=== PATIENT | female | born 1945 | race Caucasian/White ===

== ENCOUNTER 2017-01-06 05:00 | Observation (INO) ==
--- NOTE | 2017-01-06 05:07 | Emergency Department Note ---
Disposition Clinical Impression: Chest pain Qualifiers: Chest pain type: unspecified Qualified Code(s): R07.9 - Chest pain, unspecified Disposition: Admitted As Inpatient Condition: Undetermined Referrals: Unassigned,Provider [Non-Partnered Physician] - Forms: ED Satisfaction Letter Time of Disposition: 06:12 Chest Pain HPI - General Chief Complaint: ED Chest Pain Stated Complaint: Chest Pain Time Seen by Provider: 01/06/17 05:03 Source: patient Mode of arrival: EMS Limitations: no limitations Vital Signs Reviewed: Yes Nursing Notes Reviewed: Yes - History of Present Illness HPI Narrative: 71-year-old female with history of hypertension, diabetes, extensive family history of siblings who are younger and older then the patient that have had MIs and cardiac stents arrives to [facility] emergency department complaining of chest discomfort and nausea that woke her up from sleep at 2 AM. The patient states that roughly 30 minutes ago she decided to call EMS. The patient was given 4 baby aspirin per EMS. The patient states that she is not having chest pain at this time and that it is more of a discomfort. The patient states she has never had an AZ, no previous history of stress test or cardiac catheter. The patient denies any unilateral leg swelling , recent surgeries, recent immobilizations. Pt complaint: chest pain Onset (ago): hour(s) (3) Time: 02:00 Onset: during rest Pain Location: left chest Severity: mild Severity scale (1-10): 3 Quality: tightness Pain Radiation: none Improves with: nothing Worsens with: nothing Associated symptoms: Reports: nausea Treatments prior to arrival chest pain: aspirin - Related Data On Oral Contraceptives: No Allergies Allergy/AdvReac Type Severity Reaction Status Date / Time Penicillins Allergy Unknown Nausea Verified 01/06/17 05:50 sulfamethoxazole Allergy Unknown unknown Verified 01/06/17 05:50 [From Septra] trimethoprim [From Septra] Allergy Unknown unknown Verified 01/06/17 05:50 Sulfa (Sulfonamide AdvReac Severe Unconscious Verified 01/06/17 05:50 Antibiotics) metformin [From Glucophage] AdvReac Unknown Diarrhea Verified 01/06/17 05:50 All systems ED: reviewed and negative except as stated. Constitutional: Denies: fever, chills, weakness, weight change Eyes: Denies: eye pain, eye discharge, vision change Cardiovascular: Reports: chest pain. Denies: palpitations, dyspnea on exertion , edema, syncope Respiratory: Denies: cough, dyspnea, wheezes, hemoptysis, stridor Gastrointestinal: Reports: nausea. 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 Absent: tenderness, distention, guarding, rebound, rigidity - Extremities Exam Extremities exam: Present: normal inspection, full ROM. Absent: tenderness, pedal edema - Back Exam Back exam: Present: normal inspection, full ROM. Absent: tenderness - Neurological Exam Neurological exam: Present: alert, oriented X3 Course Vital Signs Temperature 98.0 F 01/06/17 05:01 Pulse Rate 104 01/06/17 05:01 Respiratory Rate 16 01/06/17 05:01 Blood Pressure 178/99 01/06/17 05:01 O2 Sat by Pulse Oximetry 95 01/06/17 05:01 Temperature 98.0 F 01/06/17 05:01 Pulse Rate 99 01/06/17 06:03 Respiratory Rate 16 01/06/17 05:01 Blood Pressure 113/59 01/06/17 06:03 O2 Sat by Pulse Oximetry 93 01/06/17 06:03 Oxygen Delivery Oxygen Delivery Room Air Chest Pain - MDM Narrative Medical decision making narrative: Patient resting comfortably. She is chest pain is almost gone. The patient's blood pressures improved. EKG demonstrates no acute findings suggestive of AZ. The patient's d-dimer is appropriate for age and does not warrant any further imaging. The patient's labwork demonstrates no acute findings. We will admit the patient to the hospitalist for further workup given the patient's medical history and no previous evaluation including stress test or cardiac catheter. Patient agrees to this plan. We will admit to the hospitalist. Accepted by Dr. Espinosa. - Lab Data Lab results reviewed: Yes I reviewed the patient's lab results. Result diagrams: 01/06/17 05:05 01/06/17 05:05 Lab Results 01/06/17 01/06/17 01/06/17 Range/Units 05:05 05:05 05:05 WBC 11.9 H (4.3-11.1) K/mcL RBC 4.96 (3.82-4.97) M/mcL Hgb 15.1 (11.5-15.4) g/dL Hct 44.8 (35.3-44.9) % MCV 90.3 (83.0-100.0) fL MCH 30.4 (28.0-33.3) pg MCHC 33.7 (31.6-35.5) g/dL RDW 12.9 (11.5-14.5) % Plt Count 243 (140-400) K/mcL MPV 9.7 (9.4-12.4) fL Immature Gran % 0.3 (0-4) % Seg Neutrophils % 71.5 % Lymphocytes % 20.3 % Monocytes % 5.7 % Eosinophils % 1.7 % Basophils % 0.5 % Neutrophils # 8.5 (1.6-8.9) K/mcL Lymphocytes # 2.4 (0.6-4.6) K/mcL Monocytes # 0.7 (0.0-1.3) K/mcL Eosinophils # 0.2 (0.0-0.6) K/mcL Basophils # 0.1 (0.0-0.2) K/mcL D-Dimer (0-500) ng/mLFEU Sodium 139 (136-145) mEq/L Potassium 4.0 (3.5-4.5) mEq/L Chloride 99 (98-109) mEq/L Carbon Dioxide 27 (19-29) mEq/L BUN 13 (7-20) mg/dL Creatinine 0.86 (0.57-1.11) mg/dL Est GFR ( Amer) > 60 (> 60) Est GFR (Non-Af Amer) > 60 (> 60) BUN/Creatinine Ratio 15 (6-26) Glucose 196 H (70-99) mg/dL Calculated Osmolality 294 (280-300) Calcium 10.0 (8.6-10.8) mg/dL Troponin I 0.01 (0-0.03) ng/mL 01/06/17 Range/Units 05:05 WBC (4.3-11.1) K/mcL RBC (3.82-4.97) M/mcL Hgb (11.5-15.4) g/dL Hct (35.3-44.9) % MCV (83.0-100.0) fL MCH (28.0-33.3) pg MCHC (31.6-35.5) g/dL RDW (11.5-14.5) % Plt Count (140-400) K/mcL MPV (9.4-12.4) fL Immature Gran % (0-4) % Seg Neutrophils % % Lymphocytes % % Monocytes % % Eosinophils % % Basophils % % Neutrophils # (1.6-8.9) K/mcL Lymphocytes # (0.6-4.6) K/mcL Monocytes # (0.0-1.3) K/mcL Eosinophils # (0.0-0.6) K/mcL Basophils # (0.0-0.2) K/mcL D-Dimer 681 H (0-500) ng/mLFEU Sodium (136-145) mEq/L Potassium (3.5-4.5) mEq/L Chloride (98-109) mEq/L Carbon Dioxide (19-29) mEq/L BUN (7-20) mg/dL Creatinine (0.57-1.11) mg/dL Est GFR ( Amer) (> 60) Est GFR (Non-Af Amer) (> 60) BUN/Creatinine Ratio (6-26) Glucose (70-99) mg/dL Calculated Osmolality (280-300) Calcium (8.6-10.8) mg/dL Troponin I (0-0.03) ng/mL - Radiology Data Radiology results reviewed: Yes I reviewed the patient's radiology results. - EKG Data EKG attestation: Yes I reviewed and interpreted this EKG. EKG results narrative: Heart rate 10 9 bpm. MN interval 169 ms. QTc 387 ms. Normal axis. Sinus tachycardia. No ST elevation but mild ST depression noted in V4, V5, V6. No reciprocal changes noted. No other acute changes noted. EKGs changes noted from 04/26/2011 EKG. Heart Score - Score History: Moderately Suspicious EKG: Normal Age: Greater than 65 Risk Factors: 1-2 risk factors Troponin: Less than normal limit HEART Score Total: 4 Attestation Statement - Attestation Attestation: I examined this patient and my medical decision-making was reviewed with the REFRIGERATING ENGINEER/PA/Advanced Practice Nurse/Resident Physician. I agree with the documented findings, disposition and treatment plan as described except to the extent set forth below. Patient emergency department complaining of chest discomfort. We will grout from sleep and when go away. Has since resolved. No cardiac history. Just of hypertension and diabetes. On exam she is in no acute distress with heart regular rate and rhythm lungs clear. Plan. Lateral ST depressions. Negative troponin. Admitted for further cardiac workup. Age-adjusted d-dimer is negative.
[2017-01-06] MEDS ORDERED: Nitroglycerin 25 MG/250 ML INFUS..BTL IVC SCH (05:15)
[2017-01-06 05:18] LABS: Basophils # 0.1 K/mcL (0.0-0.2); Basophils % 0.5 %; Eosinophils # 0.2 K/mcL (0.0-0.6); Eosinophils % 1.7 %; Hematocrit 44.8 % (35.3-44.9); Hemoglobin 15.1 g/dL (11.5-15.4); Immature Granulocytes % 0.3 % (0-4); Lymphocytes # 2.4 K/mcL (0.6-4.6); Lymphocytes % 20.3 %; Mean Corpuscular HGB Conc 33.7 g/dL (31.6-35.5); Mean Corpuscular Hemoglobin 30.4 pg (28.0-33.3); Mean Corpuscular Volume 90.3 fL (83.0-100.0); Mean Platelet Volume 9.7 fL (9.4-12.4); Monocytes # 0.7 K/mcL (0.0-1.3); Monocytes % 5.7 %; Neutrophils # 8.5 K/mcL (1.6-8.9); Platelet Count 243 K/mcL (140-400); Red Blood Count 4.96 M/mcL (3.82-4.97); Red Cell Distribution Width 12.9 % (11.5-14.5); Segmented Neutrophils % 71.5 %
[2017-01-06 05:39] LABS: BUN/Creatinine Ratio 15 (6-26); Blood Urea Nitrogen 13 mg/dL (7-20); Carbon Dioxide 27 mEq/L (19-29); Chloride 99 mEq/L (98-109); Glucose 196 mg/dL (70-99); Osmolality,Calculated 294 (280-300); Sodium 139 mEq/L (136-145); eGFR For African Americans > 60 (> 60); eGFR For Non-African Americans > 60 (> 60)
[2017-01-06] MEDS ORDERED: Nitroglycerin 0.4 MG TAB.SUBL SL PRN (05:55)
[2017-01-06] MEDS ORDERED: Nitroglycerin 0.4 MG TAB.SUBL SL ONE (05:57)
[2017-01-06] MEDS ORDERED: Ondansetron 4 MG/2 ML VIAL IVP PRN (08:14)
[2017-01-06] MEDS ORDERED: Acetaminophen 325 MG TABLET PO PRN (08:14)
[2017-01-06] MEDS ORDERED: Dextrose Gel 15 GM PO PRN ×2 (09:45)
[2017-01-06] MEDS ORDERED: *HR* Dextrose 50 % in Water (Syg) 50 ML SYRINGE IVP PRN (09:45)
[2017-01-06] MEDS ORDERED: D5% in Water 1,000 ML IVC PRN (09:45)
--- NOTE | 2017-01-06 09:50 | Internal Med History&Physical ---
Date of Encounter: 01/06/17 Time of Encounter: 09:46 Assessment and Plan (1) Chest discomfort Current visit: Yes Status: Acute Patient denies chest pain, reports discomfort described as uneasiness. Currently completely resolved. She has risk factors for CAD but no recent workup. 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 Obtain stress test and echocardiogram in the morning. Nitroglycerin as needed for chest pain (2) Essential hypertension Current visit: Yes Status: Acute Resume home medication regimen. (3) Hypertensive urgency Current visit: Yes Status: Acute Patient's blood pressure was elevated in the ambulance to 119/110. It came down with administration of nitroglycerin. Could be related to anxiety as the patient reports that she recently paid a visit to a former roommate who was diagnosed with coronary artery disease. Resume home medications. We will add IV labetalol F blood pressure is uncontrolled. (4) Type 2 diabetes mellitus Current visit: Yes Status: Acute Diabetic diet. Hold oral antidiabetic medication. Start insulin sliding scale. Qualifiers: Diabetes mellitus complication status: without complication Diabetes mellitus chcf insulin use: without tank terminal gauger use Qualified Code(s): E11.9 - Type 2 diabetes mellitus without complications (5) Elevated d-dimer Current visit: Yes Status: Acute Patient's d-dimer is mildly elevated at 681 with a cut off 500. This is appropriate for age and additionally the patient did not have chest pain suggestive of PE or EKG changes and therefore she requires no further workup for VTE. Internal Medicine - H&P: HPI Chief complaint: Chest discomfort Admitted From: Emergency Dept Plans for Post Hospital Care: Home History of present illness: Ms. Gill is a 71 year old female with past medical history significant for hypertension and diabetes who presented to the hospital for evaluation of chest discomfort. She states that she started having substernal chest discomfort at 2 :00 this morning graded as mild to moderate, described as uneasiness. Denies any aggravating factors, states that it had improved with aspirin and nitroglycerin which she received in the ambulance. Reports associated nausea but no diaphoresis, no palpitations. Denies keny chest pain and chest pressure. She states that when EMS checked her blood pressure was 190/110. Workup in the emergency department revealed negative troponin and nondiagnostic EKG. A 10 point review of systems was negative except as above. Past medical history as above Past surgical history partial sigmoid colectomy for perforated diverticulitis Family history: Positive for premature coronary artery disease in the patient's father diagnosed in his 50s. Several siblings with coronary artery disease. Twin sister suffers with hypertension and diabetes but has not been diagnosed with coronary artery disease. Social history: Lifelong nonsmoker, denies alcohol and drug use Past Med Surg Social Fam HX - Past Medical History Medical history: diabetes, hypertension Psychiatric history: no psych history - Past Surgical History Surgical History: non-contributory - Social History Smoking Status: Never smoker Smokeless Tobacco Status: No Alcohol use: occasionally Drug use: none - Family History Father Hx Family Cardiac Disorders: Yes (MS CHF) Mother Living Status: Hx Family Cardiac Disorders: Yes (MS) Hx Family Neurologic Disorders: Yes (CVA) Brother Hx Family Cardiac Disorders: Yes Sister Twin of Family Member: Yes, Fraternal Hx Family Cardiac Disorders: Yes Internal Medicine - H&P: Meds Allergies Penicillins Allergy (Unknown, Verified 01/06/17 05:50) Nausea and hives sulfamethoxazole [From Septra] Allergy (Unknown, Verified 01/06/17 05:50) unknown trimethoprim [From Septra] Allergy (Unknown, Verified 01/06/17 05:50) unknown Sulfa (Sulfonamide Antibiotics) Adverse Reaction (Severe, Verified 01/06/17 05: 50) Unconscious metformin [From Glucophage] Adverse Reaction (Unknown, Verified 01/06/17 05:50) Diarrhea All Systems PM: A 10-system review of systems was performed and is negative for pertinent findings except as documented above in the HPI. - Constitutional Vitals: Temp Pulse Resp BP Pulse Ox 98.0 F 84 16 128/76 95 01/06/17 07:09 01/06/17 07:09 01/06/17 07:09 01/06/17 07:09 01/06/17 07:09 General appearance: Present: A&O X 3, no acute distress - Eye Eye exam: Present: PERRL, conjuntiva pink, sclera anicteric Pupils: Present: PERRL - Respiratory Respiratory exam: Present: CTAB. Absent: accessory muscle use, rales, rhonchi, wheezes - Cardiovascular Cardiovascular exam: Present: RRR, +S1, +S2. Absent: diastolic murmur, gallop, rubs, systolic murmur - GI/Abdominal GI/Abdominal exam: Present: normal bowel sounds, soft, no peritoneal signs. Absent: distended, tenderness - Extremities Exam Extremities exam: Present: warm, radial pulses palpable and symetrical. Absent : calf tenderness, cyanotic, pedal edema - Neurological Exam Neurological exam: Present: CN II-XII intact, oriented X3, no focal deficits. Absent: pronater drift, facial droop, speech deficit - Skin Skin exam: Present: dry, intact Internal Med - H&P Results - Labs CBC & Chem 7: 01/06/17 05:05 01/06/17 05:05 - EKG Data -: EKG Interpreted by Myself Rate: tachycardia (Sinus tachycardia [address]-T wave changes )
[2017-01-06] MEDS: Insulin LISPRO 300 UNITS/3 ML VIAL SQ SCH ×2 (15:08→18:53)
[2017-01-06] MEDS ORDERED: Insulin LISPRO 300 UNITS/3 ML VIAL SQ SCH (21:00)
[2017-01-07 03:56] LABS: Basophils # 0.1 K/mcL (0.0-0.2); Basophils % 0.6 %; Eosinophils # 0.3 K/mcL (0.0-0.6); Hematocrit 40.7 % (35.3-44.9); Hemoglobin 13.7 g/dL (11.5-15.4); Immature Granulocytes % 0.3 % (0-4); Lymphocytes # 3.2 K/mcL (0.6-4.6); Lymphocytes % 33.5 %; Mean Corpuscular HGB Conc 33.7 g/dL (31.6-35.5); Mean Corpuscular Hemoglobin 30.8 pg (28.0-33.3); Mean Corpuscular Volume 91.5 fL (83.0-100.0); Mean Platelet Volume 10.1 fL (9.4-12.4); Monocytes # 0.7 K/mcL (0.0-1.3); Monocytes % 7.5 %; Neutrophils # 5.2 K/mcL (1.6-8.9); Platelet Count 215 K/mcL (140-400); Red Blood Count 4.45 M/mcL (3.82-4.97); Segmented Neutrophils % 55.1 %
[2017-01-07 04:15] LABS: BUN/Creatinine Ratio 23 (6-26); Blood Urea Nitrogen 19 mg/dL (7-20); Carbon Dioxide 26 mEq/L (19-29); Chloride 103 mEq/L (98-109); Chol/HDL Ratio 2.7 (0-4.9); Cholesterol 117 mg/dL (< 200); Glucose 142 mg/dL (70-99); HDL Cholesterol 44 mg/dL (40-59); LDL Cholesterol,Calculated 56 mg/dL (0-99); Magnesium 1.5 mg/dL (1.6-2.6); Osmolality,Calculated 293 (280-300); Potassium 3.5 mEq/L (3.5-4.5); Sodium 139 mEq/L (136-145); Triglycerides 83 mg/dL (< 150); eGFR For African Americans > 60 (> 60); eGFR For Non-African Americans > 60 (> 60)
[2017-01-07] MEDS ORDERED: Regadenoson 0.4 MG/5 ML SYRINGE IVP ONE (06:05)
[2017-01-07] MEDS: Insulin LISPRO 300 UNITS/3 ML VIAL SQ SCH ×2 (07:22→13:15)
[2017-01-07] MEDS ORDERED: Lisinopril 20 MG TABLET PO SCH (09:00)
[2017-01-07] MEDS ORDERED: hydroCHLOROthiazide 25 MG TABLET PO SCH (09:00)
[2017-01-07] MEDS ORDERED: Aspirin 81 MG TAB.CHEW PO SCH (09:00)
[2017-01-07 11:13] VITALS: BP 130/77
--- NOTE | 2017-01-07 14:02 | Discharge Summary ---
Date of Encounter: 01/07/17 Time of Encounter: 13:00 - Discharge Diagnosis (1) Chest pain Priority: Primary Status: Resolved Comments: Patient denied chest pain or shortness of breath throughout this admission. She stated that she never had chest pain stating that she does had some "uneasiness" in her chest. Chest x-ray negative. Elevated d-dimer however very low suspicion for PE given that she was not short of breath, not tachycardic. Echocardiogram unremarkable with ejection fraction of 66 5% and mild diastolic dysfunction and patient euvolemic on examination at this admission. Patient can back the second part of her stress test tomorrow. (2) Chest discomfort Priority: Primary Status: Resolved (3) Essential hypertension Priority: Secondary Status: Chronic Comments: Normotensive at time of discharge. Recommend daily blood pressure checks at home, and following up outpatient. (4) Hypertensive urgency Priority: Primary Status: Resolved (5) Type 2 diabetes mellitus Priority: Secondary Status: Chronic Comments: Controlled at home with an A1c earlier this year of 6.2%. Recommend continued follow up outpatient. Qualifiers: Diabetes mellitus complication status: without complication Diabetes mellitus usp insulin use: without usp use Qualified Code(s): E11.9 - Type 2 diabetes mellitus without complications (6) Elevated d-dimer Priority: Primary Status: Ruled-out - Discharge Medications Home Medications: Atorvastatin [Lipitor] 5 mg PO HS 01/06/17 [History] Benazepril HCl [Lotensin] 40 mg PO DAILY 01/06/17 [History] Biotin 2 mg PO DAILY 01/06/17 [History] Calcium Carbonate/Vitamin D3 [Calcium 600 + Vit D Softgel] 1 each PO DAILY 01/06 [History] GlipiZIDE XL (24 HR) [Glucotrol XL] 2.5 mg PO 0800 01/06/17 [History] Lactobacillus Acidophilus [Acidophilus Probiotic] 1 mg PO DAILY 01/06/17 [ History] SitaGLIPtin [Januvia] 100 mg PO DAILY 01/06/17 [History] hydroCHLOROthiazide [Hydrochlorothiazide] 25 mg PO DAILY 01/06/17 [History] Allergies/Adverse Reactions: Allergies Penicillins Allergy (Unknown, Verified 01/06/17 12:49) Nausea and hives sulfamethoxazole [From ] Allergy (Unknown, Verified 01/06/17 12:49) unknown trimethoprim [From Septra] Allergy (Unknown, Verified 01/06/17 12:49) unknown Sulfa (Sulfonamide Antibiotics) Adverse Reaction (Severe, Verified 01/06/17 12: 49) Unconscious metformin [From Glucophage] Adverse Reaction (Unknown, Verified 01/06/17 12:49) Diarrhea Procedures/tests Complete & Pending: Procedures Performed prior 72 hours Category Date Time Status NM isadora perf SPECT multi [NM] Routine Exams 01/06/17 09:43 Taken EV echocardiogram Routine Y 01/06/17 09:41 Completed SP pharm nuclear stress Routine Y 01/06/17 09:41 Completed Date of admission: 01/06/17 06:22 Primary care physician: Lulu Rowland Discharging clinician: Ileana Amos Anticipated date of discharge: 01/07/17 (returning for 2nd part of stress tomorrow) - Patient Status Disposition: Home, Self-Care Condition: Good Functional capacity at discharge: independent ambulation Overall status at discharge: patient is back to baseline - Discharge Instructions Follow Up With: Lulu Hale MD [Primary Care Provider] - Additional Instructions: Follow-up with primary care provider within one to 2 weeks, check blood pressure daily and keep a log. Return tomorrow for your stress test - Diet and Activity Activity: increase activity as tolerated Diet: diabetic diet, low fat, low cholesterol, low salt diet Hospital course: Ms. Gill is a 71 year old female with past medical history of hypertension and diabetes. Patient presented to the emergency department chief complaint of chest discomfort. Patient stating that she started to experience substernally located chest discomfort in the middle of the night described as an easiness. She denied any aggravating factors and stated improved with aspirin and nitroglycerin that she received in the ambulance. Patient also endorses nausea but no diaphoresis or palpitations. Patient denied overt chest pain or chest pressure. She states that when the EMS checked her blood pressure is 190/110. Workup in the emergency department unremarkable. Only mildly elevated blood pressure upon arrival. Chest x-ray negative. Patient was admitted to the hospitalist service for further evaluation and management. Troponins were negative. Patient had an echocardiogram that was unremarkable with ejection fraction of 60-65% and mild diastolic dysfunction. Patient was euvolemic on examination throughout this admission. She denied any pain, shortness of breath , or chest discomfort throughout this admission. She had the first part of her nuclear stress test and she was discharged and okayed to come back the next day to finish the second part of her stress test. She promised that she would definitely come back for the second part of the test. She was deemed safe to complete this test outpatient. She did have an elevated d-dimer however she did not have any shortness of breath, tachycardia, or any clinical symptoms of a PE so a CTA was not indicated. Of note, patient stating that her best friend of 50 years recently had to be hospitalized and during that time she received 3 stents. Patient stating she was extremely anxious when she woke up in the middle night and had uneasiness in her chest. Her anxiety probably contributed to her markedly elevated blood pressure. She was normotensive at time of discharge. She is discharged home in stable condition with close outpatient follow-up recommended and with the second part of her stress test arranged. ITS Impressions Chest X-Ray 01/06/17 05:04 IMPRESSION: No acute process. D/ / Jae Guzman MD / Jae Guzman MD Interpreting Provider: Jae Guzman MD Echocardiogram impressions: LVEF 60-65%. Normal LV chamber size, wall thickness and function. Mild left ventricular diastolic dysfunction. Normal right ventricular structure and function. Unable to estimate RVSP due to lack of adequate TR jet. No significant valvular dysfunction. - Time Spent with Patient Total time spent providing and/or coordinating discharge services: - Constitutional Vitals: Temp Pulse Resp BP Pulse Ox 98.1 F 80 17 130/77 95 01/07/17 11:10 01/07/17 11:10 01/07/17 11:10 01/07/17 11:10 01/07/17 11:10 General appearance: Present: A&O X 3, pleasant, no acute distress, answers questions appropriately - Head Head exam: Present: atraumatic, normocephalic - Eye Eye exam: Present: PERRL, conjuntiva pink, sclera anicteric Pupils: Present: PERRL - Neck Neck exam general surgery: Present: supple, trachea midline. Absent: lymphadenopathy - Respiratory Respiratory exam: Present: CTAB. Absent: accessory muscle use, rales, respiratory distress, rhonchi, wheezes - Cardiovascular Cardiovascular exam: Present: RRR, +S1, +S2. Absent: diastolic murmur, gallop, rubs, systolic murmur - GI/Abdominal GI/Abdominal exam: Present: normal bowel sounds, soft, no peritoneal signs. Absent: distended, tenderness - Extremities Exam Extremities exam: Present: warm, radial pulses palpable and symetrical. Absent : calf tenderness, cyanotic, pedal edema - Neurological Exam Neurological exam: Present: alert, CN II-XII intact, normal gait, oriented X3, no focal deficits, strengths equal and symetr throughout. Absent: pronater drift, facial droop, speech deficit - Skin Skin exam: Present: dry, intact, normal color, warm
--- NOTE | 2017-01-08 15:07 | Electrocardiograph Report ---
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
--- NOTE | 2017-01-09 12:03 | Nuclear Medicine Stress Report ---
Regadenoson Nuclear 2 day Name: Carolyn Gill Date of Study: 01/07/2017 Date: 1945 Ht: 60.0 in Medical Record#: [id number] Age: 71 Wt: 200.0 lb Gender: Female Order #: [id number] Location: [facility] Room: [facility] Supervising Provider: Gregg Meyer CNP Reading Physician: Lee Perkins MD, [facility] Ordering Physician: Ileana Amos CNP Primary Care Physician: Lulu Hale MD Stress Technologist: Stephanie Preston RRT Senior Training Specialist: Royer Vidal Indications: Chest Pain Impression: Gated LVEF > 70%. Perfusion imaging was negative for ischemia or infarct. History: Diabetes Stress Test Summary: Stress Test Type: Pharmacologic Regadenoson 0.4mg/5ml given IV Baseline Information: Initial Heart Rate: 93 Blood Pressure: 138/86 Stress Information: Test Terminated Due to (primary): As per protocol Maximum Blood Pressure: 128/68 Maximum Heart Rate: 112 Percent Maximum Heart Rate Achieved: 75 Double Product: [id number] Symptoms: No chest symptoms Nuclear Summary: SPECT myocardial perfusion imaging using Tc99m Sestamibi given intravenously was performed at rest and following cardiac stress testing. The resting images were obtained following initial dose of 29.5 mCi. Following stress an additional dose of 33.8 mCi was given at peak exercise or 30 seconds post regadenoson infusion. Findings: Stress Note * Resting ECG demonstrated sinus rhythm, poor r-wave progression, low voltage in precordial leads. * No baseline arrhythmias were noted. * Patient had no chest pain during stress. * No arrhythmias were noted during stress. * No significant ECG changes with regadenoson. Hemodynamic responses * Normal hemodynamic responses to pharmacologic stress. Study Quality * Study quality is good. Gated EF > 70% * Gated LVEF > 70%. Left Ventricle * The left ventricle is not dilated. * Normal Segmental Perfusion in rest. * Normal segmental perfusion in stress. TID * No evidence of transient ischemic dilatation. Updated by Lee Prekins MD, [facility] on 01/09/2017 11:55:54 AM electronically signed on 01/09/2017 11:56:18 AM with status of Final
== END 2017-01-07 15:55 | disposition home or self-care (01) ==
LOC: 3BNU 05:00 → EMEROO 05:00 → 3BNU 06:39
PROVIDERS: ADMIT Hospitalist; ATTEND Nurse Practitioner Family